=== PATIENT | female | born 1945 ===

== ENCOUNTER 2025-07-03 06:26 | Outpatient (CLI) | payer OTHER ==
[2025-07-03 07:40] LABS: BASO % 0.6 % (0.1-1.2); EOS # 0.22 (0.04-0.54); EOS % 3.1 % (0.7-7.0); LYMPH # 2.85 (1.18-3.74); LYMPH % 40.5 % (19.3-53.1); MEAN PLATELET VOLUME 10.40 fl (9.4-12.4); MONO # 0.75 (0.24-0.82); MONO % 10.7 % (4.7-12.5); NEUT # 3.17 (1.56-6.13); NEUT % 45.0 % (34.0-71.1); RED CELL DISTRIBUTION WIDTH 13.7 % (11.6-14.4)
[2025-07-03 07:56] LABS: URINE APPEARANCE Clear; URINE BILIRRUBIN Negative (NEGATIVE); URINE BLOOD NHT; URINE COLOR Yellow; URINE GLUCOSE Negative (NEGATIVE); URINE KETONE Trace (NEGATIVE); URINE LEUKOCYTE Trace; URINE NITRATE Negative; URINE PROTEIN Negative (NEGATIVE); URINE UROBILINOGEN 0.2 E.U./dl
[2025-07-03 07:57] LABS: URINE BACTERIA 26.3 uL (0.0-1933); URINE EPITHELIAL CELLS 5.5 uL (0.0-38.8); URINE RBC 15.8 uL (0.0-20.8); URINE WBC 12.9 uL (0.0-23.2)
[2025-07-03 08:04] LABS: URINE CAST 0.29 uL (0.0-1.40)
[2025-07-03 08:23] LABS: INR 0.95
[2025-07-03 08:30] LABS: ALT/SGPT 23.0 U/L (12-78); AST/SGOT 20.0 U/L (15-37); BILIRUBIN TOTAL 0.44 mg/dL (0.3-1.2); BUN CREA RATIO 15.0 (7.0-25.0); CREATININE SERUM 1.17 mg/dL (0.55-1.02); GFR 44.51; GLOBULINA 3.6 G/DL (2.4-3.5); GLUCOSE FASTING 108.0 mg/dL (65-100); OSMOLALITY SERUM 285.0 MOSM/KG (275-295)
[2025-07-03] MEDS ORDERED: VERAPAMIL ER240 MG PO (08:41)
[2025-07-03] MEDS ORDERED: CALAN PO (08:50)
[2025-07-03] MEDS ORDERED: ZETIA10 MG PO (08:50)
[2025-07-03] MEDS ORDERED: CRESTOR40 MG PO (08:51)
== END 2025-07-03 06:27 | disposition home or self-care (01) ==
LOC: LAB 06:26 → RAD 06:26 → LAB 06:27
PROVIDERS: ATTEND Orthopaedic Surgery Sports Medicine
DX: D68.9 Coagulation defect, unspecified (principal); I10 Essential (primary) hypertension; Z01.818 Encounter for other preprocedural examination

== ENCOUNTER 2025-07-09 06:00 | Day surgery (SDC) | payer OTHER ==
[2025-07-03 08:51] VITALS: BP 154/74
[~2025-07-09] VITALS: Ht 152.4 cm; Wt 65.8 kg
[~2025-07-09 06:00] MED LIST: CALAN PO; CRESTOR40 MG PO; VERAPAMIL ER240 MG PO; ZETIA10 MG PO
[2025-07-09] MEDS ORDERED: CEFOXITIN SODIUM 2,000 MG VIAL IV ONE (07:30)
[2025-07-09] MEDS ORDERED: LIDOCAINE HCL 1%/EPINEPHRINE 20ML VIAL IJ ONE (07:30)
[2025-07-09] MEDS ORDERED: BUPIVACAINE HCL 30 ML VIAL IJ ONE (07:30)
[2025-07-09] MEDS ORDERED: METHYLPREDNISOLONE ACETATE 80 MG/ML VIAL IM ONE (07:30)
[2025-07-09] MEDS ORDERED: ISOPROPYL ALCOHOL 30 ML OUNCE TOP ONE (07:30)
[2025-07-09] MEDS ORDERED: DUI500 PO (08:43)
[2025-07-09] MEDS ORDERED: TRAM1TAB98 PO (08:44)
[2025-07-09] MEDS ORDERED: PROMETHAZINE HCL 25 MG/ML AMPUL IM PRN (08:45)
[2025-07-09] MEDS ORDERED: MEPERIDINE HCL/PF 25 MG/ML VIAL IM PRN (08:45)
[2025-07-09] MEDS ORDERED: CEFAZOLIN SODIUM 1,000 MG VIAL IV ONE (08:45)
[2025-07-09] MEDS ORDERED: CEFADROXIL 500 MG CAPSULE PO SCH (09:00)
== END 2025-07-09 12:15 | disposition home or self-care (01) ==
LOC: CIR.AMB 06:00
PROVIDERS: ATTEND Orthopaedic Surgery Sports Medicine
DX: M23.221 Derangement of posterior horn of medial meniscus due to old tear or injury, right knee (principal); M23.251 Derangement of posterior horn of lateral meniscus due to old tear or injury, right knee; M23.51 Chronic instability of knee, right knee; M65.861 Other synovitis and tenosynovitis, right lower leg; M17.11 Unilateral primary osteoarthritis, right knee; M67.51 Plica syndrome, right knee; M22.41 Chondromalacia patellae, right knee